=== PATIENT | female | born 1970 | race African-American/Black ===

== ENCOUNTER 2021-06-12 12:22 | Inpatient (IN) | payer BC ==
[2021-06-12] MEDS ORDERED: MENTHOL/PHENOL 1 EACH UD MM PRN (14:05)
[2021-06-12] MEDS ORDERED: ACETAMINOPHEN 325 MG TABLET (FP) PO PRN (14:05)
[2021-06-12] MEDS ORDERED: IBUPROFEN 400 MG TABLET (FP) PO PRN (14:05)
[2021-06-12] MEDS ORDERED: METHOCARBAMOL 500 MG TABLET PO PRN (14:05)
[2021-06-12] MEDS ORDERED: MAGNESIUM CITRATE 300 ML BOTTLE PO PRN (14:05)
[2021-06-12] MEDS ORDERED: diazePAM 5 MG TABLET PO PRN (14:05)
[2021-06-12] MEDS ORDERED: ONDANSETRON *ODT* 4 MG TABLET SL PRN (14:05)
[2021-06-12] MEDS ORDERED: MAGNESIUM HYDROX 2400MG/30ML ORAL SUSPENSION 30 ML CUP PO PRN (14:05)
[2021-06-12] MEDS ORDERED: BISMUTH SUBSALICYLATE 524 MG/30 ML PO PRN (14:05)
[2021-06-12] MEDS ORDERED: NICOTINE 10 MG CARTRIDGE (INHALER) IH PRN (14:05)
[2021-06-12 14:06] VITALS: BMI 28.9
[2021-06-12] MEDS ORDERED: diazePAM 5 MG TABLET ONE (16:32)
[2021-06-12] MEDS ORDERED: ONDANSETRON *ODT* 4 MG TABLET ONE (16:33)
[2021-06-12] MEDS ORDERED: hydrOXYzine PAMOATE 25 MG CAPSULE (FP) PO ONE (16:34)
[2021-06-12] MEDS: diazePAM 5 MG TABLET PO SCH ×2 (16:36→22:27)
[2021-06-12] MEDS: PRENATAL VITAMINS W/ FOLIC ACID TABLET (FP) PO SCH (16:36)
[2021-06-12 17:17] LABS: HEMATOCRIT 42.8 % (32.4-45.2); HEMOGLOBIN 14.2 GM/dL (10.7-15.3); MCH 28.1 pg (25.7-33.7); MCHC 33.3 g/dl (32.0-36.0); MEAN CELL VOLUME 84.5 fl (80-96); MEAN PLT VOLUME 8.1 fl (7.5-11.1); PLATELET COUNT 345 10^3/uL (134-434); RBC 5.06 M/mm3 (3.60-5.2); RDW 15.8 % (11.6-15.6); WHITE BLOOD COUNT 5.9 K/mm3 (4.0-10.0)
[2021-06-12 17:32] LABS: ALBUMIN 4.4 g/dl (3.4-5.0); BLOOD UREA NITROGEN 12.8 mg/dL (7-18)
[2021-06-12 17:35] LABS: CALCIUM 9.6 mg/dL (8.5-10.1)
[2021-06-12 17:37] LABS: CREATININE 0.8 mg/dL (0.55-1.3)
[2021-06-12 17:38] LABS: BILIRUBIN,TOTAL 0.9 mg/dL (0.2-1); TOT PROT 8.4 g/dl (6.4-8.2)
[2021-06-12] MEDS: hydrOXYzine PAMOATE 25 MG CAPSULE (FP) PO SCH ×2 (20:02→22:27)
[2021-06-12] MEDS: NICOTINE 14 MG/24 HOURS TOPICAL PATCH TD SCH (20:07)
[2021-06-12] MEDS: MELATONIN 5 MG TABLETS PO SCH (22:26)
[2021-06-12] MEDS: QUEtiapine FUMARATE 100 MG TABLET (FP) PO SCH (22:26)
[2021-06-12] MEDS: GABAPENTIN 300 MG CAPSULE PO SCH (22:27)
[2021-06-12] MEDS: THIAMINE HCL 100 MG TABLET (FP) PO SCH (22:27)
[2021-06-13] MEDS: hydrOXYzine PAMOATE 25 MG CAPSULE (FP) PO SCH ×2 (05:24→10:18)
[2021-06-13] MEDS: diazePAM 5 MG TABLET PO SCH ×4 (05:24→22:23)
[2021-06-13] MEDS: ACETAMINOPHEN 325 MG TABLET (FP) PO PRN (05:26)
[2021-06-13] MEDS ORDERED: PNEUMOC 13-VAL CONJ-DIP CRM/PF 0.5 ML DISP.SYRIN IM ONE (10:00)
[2021-06-13] MEDS: NICOTINE 14 MG/24 HOURS TOPICAL PATCH TD SCH (10:18)
[2021-06-13] MEDS: PRENATAL VITAMINS W/ FOLIC ACID TABLET (FP) PO SCH (10:18)
[2021-06-13] MEDS: GABAPENTIN 300 MG CAPSULE PO SCH ×2 (10:19→22:23)
[2021-06-13 10:25] LABS: HIV INTERPRETATION NEGATIVE (NEGATIVE)
[2021-06-13] MEDS ORDERED: PNEUMOCOCCAL 23 VACCINE 0.5 ML VIAL IM ONE (12:00)
[2021-06-13] MEDS ORDERED: hydrOXYzine PAMOATE 25 MG CAPSULE (FP) PO PRN (13:12)
[2021-06-13] MEDS: THIAMINE HCL 100 MG TABLET (FP) PO SCH (22:23)
[2021-06-13] MEDS: QUEtiapine FUMARATE 100 MG TABLET (FP) PO SCH (22:23)
[2021-06-13] MEDS: MELATONIN 5 MG TABLETS PO SCH (22:25)
[2021-06-14] MEDS: diazePAM 5 MG TABLET PO SCH ×3 (06:16→22:08)
[2021-06-14] MEDS: NICOTINE POLACRILEX 4 MG GUM BUC PRN ×2 (06:17→10:30)
[2021-06-14] MEDS: PRENATAL VITAMINS W/ FOLIC ACID TABLET (FP) PO SCH (10:29)
[2021-06-14] MEDS: GABAPENTIN 300 MG CAPSULE PO SCH ×2 (10:29→22:07)
[2021-06-14] MEDS: NICOTINE 14 MG/24 HOURS TOPICAL PATCH TD SCH (11:12)
[2021-06-14] MEDS ORDERED: COLLOIDAL OATMEAL 1 BAR EACH TP PRN (13:08)
[2021-06-14] MEDS: diphenhydrAMINE HCL 25 MG CAPSULE (FP) PO PRN ×2 (13:57→20:26)
[2021-06-14] MEDS: HYDROCORTISONE 1% TOPICAL OINT 30 GM TUBE TP PRN (18:29)
[2021-06-14] MEDS: THIAMINE HCL 100 MG TABLET (FP) PO SCH (22:07)
[2021-06-14] MEDS: QUEtiapine FUMARATE 100 MG TABLET (FP) PO SCH (22:07)
[2021-06-14] MEDS: MELATONIN 5 MG TABLETS PO SCH (22:07)
[2021-06-15] MEDS: diazePAM 5 MG TABLET PO SCH ×2 (06:49→17:48)
[2021-06-15] MEDS: PRENATAL VITAMINS W/ FOLIC ACID TABLET (FP) PO SCH (10:36)
[2021-06-15] MEDS: GABAPENTIN 300 MG CAPSULE PO SCH ×2 (10:36→22:18)
[2021-06-15] MEDS: diphenhydrAMINE HCL 25 MG CAPSULE (FP) PO PRN ×2 (10:38→17:49)
[2021-06-15] MEDS: HYDROCORTISONE 1% TOPICAL OINT 30 GM TUBE TP PRN (10:38)
[2021-06-15] MEDS: NICOTINE 14 MG/24 HOURS TOPICAL PATCH TD SCH (11:38)
[2021-06-15] MEDS: MAG HYDROX/AL HYDROX/SIMETH 30 ML UNIT-DOSE CUP PO PRN ×2 (14:20→22:20)
[2021-06-15] MEDS: MELATONIN 5 MG TABLETS PO SCH (22:18)
[2021-06-15] MEDS: THIAMINE HCL 100 MG TABLET (FP) PO SCH (22:18)
[2021-06-15] MEDS: QUEtiapine FUMARATE 100 MG TABLET (FP) PO SCH (22:18)
[2021-06-15] MEDS: ACETAMINOPHEN 325 MG TABLET (FP) PO PRN (22:19)
[2021-06-16] MEDS: diphenhydrAMINE HCL 25 MG CAPSULE (FP) PO PRN (05:54)
[2021-06-16] MEDS ORDERED: diazePAM 5 MG TABLET PO ONE (06:00)
[2021-06-16] MEDS: GABAPENTIN 300 MG CAPSULE PO SCH (09:51)
[2021-06-16] MEDS: PRENATAL VITAMINS W/ FOLIC ACID TABLET (FP) PO SCH (09:52)
[2021-06-16] MEDS: NICOTINE 14 MG/24 HOURS TOPICAL PATCH TD SCH (09:52)
[2021-06-16 10:55] VITALS: BP 142/91; PULSE 89; TEMP 96.8
== END 2021-06-16 10:05 | disposition home or self-care (01) | DRG 774 ==
LOC: YASAS 12:22 → Y3N 19:08
PROVIDERS: ADMIT Allergy & Immunology; ATTEND Allergy & Immunology
PROC: HZ2ZZZZ Detoxification Services for Substance Abuse Treatment (ICD-10-PCS; principal; 2021-06-12)
DX: F10.230 Alcohol dependence with withdrawal, uncomplicated (principal); F14.10 Cocaine abuse, uncomplicated; F12.10 Cannabis abuse, uncomplicated; F17.210 Nicotine dependence, cigarettes, uncomplicated; F10.282 Alcohol dependence with alcohol-induced sleep disorder; F31.9 Bipolar disorder, unspecified; I10 Essential (primary) hypertension; E78.5 Hyperlipidemia, unspecified; L30.9 Dermatitis, unspecified; E66.9 Obesity, unspecified; Z68.29 Body mass index [BMI] 29.0-29.9, adult; Z62.810 Personal history of physical and sexual abuse in childhood; Z86.19 Personal history of other infectious and parasitic diseases; Z91.410 Personal history of adult physical and sexual abuse; Z88.8 Allergy status to other drugs, medicaments and biological substances; Z56.0 Unemployment, unspecified
CPT/HCPCS: 36415; 80053; 81025; 85027; 86593; 86780; 87389; 90732; 93005; 93010; C9803; G0009; Q0162; U0003; U0005

== ENCOUNTER 2022-12-09 11:36 | Inpatient (IN) | payer BC ==
[2022-12-09 12:25] VITALS: BMI 25.6
[2022-12-09] MEDS ORDERED: LOPERAMIDE HCL 2 MG CAPSULE PO PRN (14:03)
[2022-12-09] MEDS ORDERED: MAG HYDROX/AL HYDROX/SIMETH 30 ML UNIT-DOSE CUP PO PRN (14:03)
[2022-12-09] MEDS ORDERED: IBUPROFEN 400 MG TABLET (FP) PO PRN (14:03)
[2022-12-09] MEDS ORDERED: DICYCLOMINE HCL 10 MG CAPSULE PO PRN (14:03)
[2022-12-09] MEDS ORDERED: NALOXONE HCL 0.4 MG/ML VIAL IM PRN (14:03)
[2022-12-09] MEDS ORDERED: BISMUTH SUBSALICYLATE 262 MG/15 ML BTL PO PRN (14:03)
[2022-12-09] MEDS ORDERED: BENZONATATE 200 MG CAPSULE PO PRN (14:03)
[2022-12-09] MEDS ORDERED: guaiFENesin 600 MG TABLET.ER (FP) PO PRN (14:03)
[2022-12-09] MEDS ORDERED: NALOXONE HCL (KLOXXADO) 8 MG SPRAY NS PRN (14:03)
[2022-12-09] MEDS ORDERED: BENZOCAINE/MENTHOL (CHLORASEPTIC ) LOZENGE MM PRN (14:03)
[2022-12-09] MEDS ORDERED: POLYETHYLENE GLYCOL (HEALTHYLAX) 3350 17 GM PACKET PO PRN (14:03)
[2022-12-09] MEDS ORDERED: NICOTINE 10 MG CARTRIDGE (INHALER) IH PRN (14:03)
[2022-12-09] MEDS ORDERED: chlordiazePOXIDE HCL 25 MG CAPSULE ONE (15:24)
[2022-12-09] MEDS: chlordiazePOXIDE HCL 25 MG CAPSULE PO PRN (15:27)
[2022-12-09] MEDS: PRENATAL VITAMINS W/ FOLIC ACID TABLET (FP) PO SCH (15:45)
[2022-12-09] MEDS: chlordiazePOXIDE HCL 25 MG CAPSULE PO SCH ×2 (17:24→22:34)
[2022-12-09] MEDS: NICOTINE POLACRILEX 4 MG GUM BUC PRN (17:58)
[2022-12-09] MEDS ORDERED: MELATONIN 5 MG TABLETS PO SCH (22:00)
[2022-12-09] MEDS: QUEtiapine FUMARATE 100 MG TABLET (FP) PO SCH (22:34)
[2022-12-09] MEDS: THIAMINE HCL 100 MG TABLET (FP) PO SCH (22:34)
[2022-12-09] MEDS: GABAPENTIN 300 MG CAPSULE PO SCH (22:34)
[2022-12-09] MEDS: IBUPROFEN 600 MG TABLET (FP) PO PRN (22:35)
[2022-12-10] MEDS: ACETAMINOPHEN 325 MG TABLET (FP) PO PRN (05:27)
[2022-12-10] MEDS: chlordiazePOXIDE HCL 25 MG CAPSULE PO SCH ×4 (05:45→22:07)
[2022-12-10] MEDS: NICOTINE POLACRILEX 4 MG GUM BUC PRN ×4 (06:56→22:10)
[2022-12-10] MEDS: GABAPENTIN 300 MG CAPSULE PO SCH ×2 (10:24→22:07)
[2022-12-10] MEDS: PRENATAL VITAMINS W/ FOLIC ACID TABLET (FP) PO SCH (10:24)
[2022-12-10] MEDS: ONDANSETRON *ODT* 4 MG TABLET SL PRN (10:26)
[2022-12-10] MEDS: IBUPROFEN 600 MG TABLET (FP) PO PRN ×2 (10:26→17:23)
[2022-12-10] MEDS: hydrOXYzine PAMOATE 25 MG CAPSULE (FP) PO PRN ×3 (10:28→22:08)
[2022-12-10] MEDS: MAGNESIUM HYDROX 2400MG/30ML ORAL SUSPENSION 30 ML CUP PO PRN (11:13)
[2022-12-10 13:16] LABS: CALCIUM 9.1 mg/dL (8.5-10.1); HEMATOCRIT 43.8 % (32.4-45.2); HEMOGLOBIN 14.4 GM/dL (10.7-15.3); MCH 29.2 pg (25.7-33.7); MCHC 32.9 g/dl (32.0-36.0); MEAN CELL VOLUME 88.6 fl (80-96); MEAN PLT VOLUME 8.4 fl (7.5-11.1); PLATELET COUNT 379 10^3/uL (134-434); RBC 4.95 M/mm3 (3.60-5.2); RDW 15.4 % (11.6-15.6); WHITE BLOOD COUNT 4.8 K/mm3 (4.0-10.0)
[2022-12-10 13:17] LABS: ALBUMIN 3.8 g/dl (3.4-5.0); BLOOD UREA NITROGEN 19.2 mg/dL (7-18)
[2022-12-10 13:20] LABS: CREATININE 0.6 mg/dL (0.55-1.3)
[2022-12-10 13:21] LABS: BILIRUBIN,TOTAL 0.4 mg/dL (0.2-1); TOT PROT 7.3 g/dl (6.4-8.2)
[2022-12-10] MEDS: METHOCARBAMOL 500 MG TABLET PO PRN (13:34)
[2022-12-10 14:08] LABS: HIV INTERPRETATION NEGATIVE (NEGATIVE)
[2022-12-10] MEDS: THIAMINE HCL 100 MG TABLET (FP) PO SCH (22:06)
[2022-12-10] MEDS: QUEtiapine FUMARATE 100 MG TABLET (FP) PO SCH (22:07)
[2022-12-11] MEDS: IBUPROFEN 600 MG TABLET (FP) PO PRN ×2 (00:48→10:09)
[2022-12-11] MEDS: hydrOXYzine PAMOATE 25 MG CAPSULE (FP) PO PRN ×3 (06:11→17:31)
[2022-12-11] MEDS: NICOTINE POLACRILEX 4 MG GUM BUC PRN ×3 (06:12→15:53)
[2022-12-11] MEDS: chlordiazePOXIDE HCL 25 MG CAPSULE PO SCH ×4 (06:13→22:13)
[2022-12-11] MEDS: NYSTATIN 500,000 UNITS/5 ML SUSPENSION PO SCH ×4 (06:13→23:13)
[2022-12-11] MEDS: PRENATAL VITAMINS W/ FOLIC ACID TABLET (FP) PO SCH (10:06)
[2022-12-11] MEDS: GABAPENTIN 300 MG CAPSULE PO SCH ×2 (10:06→22:14)
[2022-12-11] MEDS ORDERED: PNEUMOC 20-VAL CONJ-DIP CRM/PF 0.5 ML SYRINGE IM ONE (12:00)
[2022-12-11] MEDS ORDERED: COLLOIDAL OATMEAL 1 BAR EACH TP PRN (13:58)
[2022-12-11] MEDS: LORATADINE 10 MG TABLET PO SCH (14:15)
[2022-12-11] MEDS: MAGNESIUM HYDROX 2400MG/30ML ORAL SUSPENSION 30 ML CUP PO PRN (16:44)
[2022-12-11] MEDS: chlordiazePOXIDE HCL 25 MG CAPSULE PO PRN ×2 (17:30→22:15)
[2022-12-11] MEDS: THIAMINE HCL 100 MG TABLET (FP) PO SCH (22:14)
[2022-12-11] MEDS: QUEtiapine FUMARATE 100 MG TABLET (FP) PO SCH (22:14)
[2022-12-12] MEDS ORDERED: chlordiazePOXIDE HCL 10 MG CAPSULE PO PRN
[2022-12-12] MEDS: NYSTATIN 500,000 UNITS/5 ML SUSPENSION PO SCH ×3 (05:09→17:29)
[2022-12-12] MEDS: chlordiazePOXIDE HCL 10 MG CAPSULE PO SCH ×4 (05:10→22:58)
[2022-12-12] MEDS: NICOTINE POLACRILEX 4 MG GUM BUC PRN ×4 (07:23→17:30)
[2022-12-12] MEDS: PRENATAL VITAMINS W/ FOLIC ACID TABLET (FP) PO SCH (10:23)
[2022-12-12] MEDS: GABAPENTIN 300 MG CAPSULE PO SCH ×2 (10:24→22:58)
[2022-12-12] MEDS: hydrOXYzine PAMOATE 25 MG CAPSULE (FP) PO PRN (10:24)
[2022-12-12] MEDS: METHOCARBAMOL 500 MG TABLET PO PRN (10:26)
[2022-12-12] MEDS: LORATADINE 10 MG TABLET PO SCH (10:57)
[2022-12-12] MEDS: ALBUTEROL SO4 2.5/IPRATROPIUM 0.5 INH SOL 3 ML VIAL.NEB. NEB SCH ×3 (11:09→20:31)
[2022-12-12] MEDS: ONDANSETRON *ODT* 4 MG TABLET SL PRN (15:08)
[2022-12-12] MEDS: THIAMINE HCL 100 MG TABLET (FP) PO SCH (22:58)
[2022-12-12] MEDS: QUEtiapine FUMARATE 100 MG TABLET (FP) PO SCH (22:58)
[2022-12-12] MEDS: ACETAMINOPHEN 325 MG TABLET (FP) PO PRN (22:58)
[2022-12-13] MEDS: NYSTATIN 500,000 UNITS/5 ML SUSPENSION PO SCH ×5 (00:33→23:23)
[2022-12-13] MEDS: ONDANSETRON *ODT* 4 MG TABLET SL PRN ×2 (03:10→11:25)
[2022-12-13] MEDS: METHOCARBAMOL 500 MG TABLET PO PRN (04:36)
[2022-12-13] MEDS: chlordiazePOXIDE HCL 10 MG CAPSULE PO SCH ×2 (05:55→17:38)
[2022-12-13] MEDS: ALBUTEROL SO4 2.5/IPRATROPIUM 0.5 INH SOL 3 ML VIAL.NEB. NEB SCH (08:10)
[2022-12-13] MEDS: NICOTINE POLACRILEX 4 MG GUM BUC PRN ×2 (08:54→14:44)
[2022-12-13] MEDS: PRENATAL VITAMINS W/ FOLIC ACID TABLET (FP) PO SCH (10:14)
[2022-12-13] MEDS: hydrOXYzine PAMOATE 25 MG CAPSULE (FP) PO PRN (10:14)
[2022-12-13] MEDS: GABAPENTIN 300 MG CAPSULE PO SCH ×2 (10:14→22:21)
[2022-12-13] MEDS: LORATADINE 10 MG TABLET PO SCH (10:14)
[2022-12-13] MEDS: predniSONE 20 MG TABLET (UD) PO SCH (10:54)
[2022-12-13] MEDS ORDERED: GABAPENTIN 300 MG CAPSULE PO ONE (14:00)
[2022-12-13] MEDS: QUEtiapine FUMARATE 100 MG TABLET (FP) PO SCH (22:20)
[2022-12-13] MEDS: THIAMINE HCL 100 MG TABLET (FP) PO SCH (22:20)
[2022-12-14] MEDS ORDERED: chlordiazePOXIDE HCL 10 MG CAPSULE PO ONE (05:00)
[2022-12-14] MEDS: hydrOXYzine PAMOATE 25 MG CAPSULE (FP) PO PRN (05:47)
[2022-12-14] MEDS: NICOTINE POLACRILEX 4 MG GUM BUC PRN ×2 (05:48→09:41)
[2022-12-14] MEDS: GABAPENTIN 300 MG CAPSULE PO SCH (09:24)
[2022-12-14] MEDS: predniSONE 20 MG TABLET (UD) PO SCH (09:24)
[2022-12-14] MEDS: LORATADINE 10 MG TABLET PO SCH (09:24)
[2022-12-14] MEDS: PRENATAL VITAMINS W/ FOLIC ACID TABLET (FP) PO SCH (09:25)
[2022-12-14 09:43] VITALS: BP 119/82; PULSE 90; RESP 18; TEMP 96.9
[2022-12-14] MEDS ORDERED: QUEtiapine FUMARATE 200 MG TABLET PO SCH (22:00)
== END 2022-12-14 10:11 | disposition home or self-care (01) | DRG 774 ==
LOC: YASAS 11:36 → Y6N 14:13
PROVIDERS: ADMIT Allergy & Immunology; ATTEND Surgery
PROC: HZ2ZZZZ Detoxification Services for Substance Abuse Treatment (ICD-10-PCS; principal; 2022-12-09)
DX: F10.230 Alcohol dependence with withdrawal, uncomplicated (principal); F14.20 Cocaine dependence, uncomplicated; F12.20 Cannabis dependence, uncomplicated; F19.282 Other psychoactive substance dependence with psychoactive substance-induced sleep disorder; F31.9 Bipolar disorder, unspecified; F25.0 Schizoaffective disorder, bipolar type; E78.5 Hyperlipidemia, unspecified; I10 Essential (primary) hypertension; J44.1 Chronic obstructive pulmonary disease with (acute) exacerbation; B37.0 Candidal stomatitis; J30.2 Other seasonal allergic rhinitis; Z62.810 Personal history of physical and sexual abuse in childhood; Z87.891 Personal history of nicotine dependence; Z86.16 Personal history of COVID-19; Z59.01 Sheltered homelessness
CPT/HCPCS: 36415; 71045-TC-FY; 80053; 85027; 86593; 86780; 87389; 90677; 94640; C9803-CS; Q0162; U0003; U0005

== ENCOUNTER 2023-06-01 15:36 | Inpatient (IN) | payer BC ==
[2023-06-01 16:43] VITALS: BMI 25.6
[2023-06-01] MEDS ORDERED: LORazepam 1 MG TABLET PO PRN (17:27)
[2023-06-01] MEDS ORDERED: BENZOCAINE/MENTHOL (CHLORASEPTIC ) LOZENGE MM PRN (17:31)
[2023-06-01] MEDS ORDERED: ONDANSETRON *ODT* 4 MG TABLET SL PRN (17:31)
[2023-06-01] MEDS ORDERED: MAGNESIUM HYDROX 2400MG/30ML ORAL SUSPENSION 30 ML CUP PO PRN (17:31)
[2023-06-01] MEDS ORDERED: NALOXONE HCL (KLOXXADO) 8 MG SPRAY NS PRN (17:31)
[2023-06-01] MEDS ORDERED: DICYCLOMINE HCL 10 MG CAPSULE PO PRN (17:31)
[2023-06-01] MEDS ORDERED: LOPERAMIDE HCL 2 MG CAPSULE PO PRN (17:31)
[2023-06-01] MEDS ORDERED: POLYETHYLENE GLYCOL (HEALTHYLAX) 3350 17 GM PACKET PO PRN (17:31)
[2023-06-01] MEDS ORDERED: BISMUTH SUBSALICYLATE 524 MG/30 ML PO PRN (17:31)
[2023-06-01] MEDS ORDERED: guaiFENesin 600 MG TABLET.ER (FP) PO PRN (17:31)
[2023-06-01] MEDS ORDERED: BENZONATATE 200 MG CAPSULE PO PRN (17:31)
[2023-06-01] MEDS ORDERED: IBUPROFEN 400 MG TABLET (FP) PO PRN (17:31)
[2023-06-01] MEDS ORDERED: NALOXONE HCL 0.4 MG/ML VIAL IM PRN (17:31)
[2023-06-01] MEDS ORDERED: ALBUTEROL SO4 HFA INHALER IH PRN (17:33)
[2023-06-01] MEDS ORDERED: diazePAM 5 MG TABLET ONE (18:04)
[2023-06-01] MEDS: diazePAM 5 MG TABLET PO PRN (18:06)
[2023-06-01] MEDS: hydrOXYzine PAMOATE 25 MG CAPSULE (FP) PO PRN (18:34)
[2023-06-01] MEDS: MELATONIN 5 MG TABLETS PO SCH (22:19)
[2023-06-01] MEDS: diazePAM 5 MG TABLET PO SCH (22:19)
[2023-06-01] MEDS: THIAMINE HCL 100 MG TABLET (FP) PO SCH (22:19)
[2023-06-01] MEDS ORDERED: LORazepam 2 MG TABLET PO SCH (23:00)
[2023-06-02] MEDS: diazePAM 5 MG TABLET PO SCH ×4 (05:22→22:04)
[2023-06-02] MEDS: ACETAMINOPHEN 325 MG TABLET (FP) PO PRN ×2 (05:22→14:10)
[2023-06-02] MEDS: NICOTINE POLACRILEX 2 MG GUM BC PRN ×3 (08:01→17:58)
[2023-06-02] MEDS: NICOTINE 14 MG/24 HOURS TOPICAL PATCH TD SCH (10:18)
[2023-06-02] MEDS: GABAPENTIN 300 MG CAPSULE PO SCH ×2 (10:18→22:02)
[2023-06-02] MEDS: PRENATAL VITAMINS W/ FOLIC ACID TABLET (FP) PO SCH (10:18)
[2023-06-02] MEDS: hydrOXYzine PAMOATE 25 MG CAPSULE (FP) PO PRN (10:19)
[2023-06-02] MEDS: METHOCARBAMOL 500 MG TABLET PO PRN (10:19)
[2023-06-02 10:35] LABS: CALCIUM 9.5 mg/dL (8.5-10.1); HEMATOCRIT 43.6 % (32.4-45.2); HEMOGLOBIN 14.2 GM/dL (10.7-15.3); MCH 28.6 pg (25.7-33.7); MCHC 32.6 g/dl (32.0-36.0); MEAN CELL VOLUME 87.7 fl (80-96); MEAN PLT VOLUME 8.7 fl (7.5-11.1); PLATELET COUNT 319 10^3/uL (134-434); RBC 4.97 M/mm3 (3.60-5.2); RDW 14.7 % (11.6-15.6); WHITE BLOOD COUNT 4.1 K/mm3 (4.0-10.0)
[2023-06-02 10:36] LABS: ALBUMIN 3.7 g/dl (3.4-5.0); BLOOD UREA NITROGEN 12.6 mg/dL (7-18)
[2023-06-02 10:39] LABS: CREATININE 0.8 mg/dL (0.55-1.3)
[2023-06-02 10:40] LABS: BILIRUBIN,TOTAL 0.7 mg/dL (0.2-1); TOT PROT 7.4 g/dl (6.4-8.2)
[2023-06-02] MEDS: MAG HYDROX/AL HYDROX/SIMETH 30 ML UNIT-DOSE CUP PO PRN (10:40)
[2023-06-02] MEDS: IBUPROFEN 600 MG TABLET (FP) PO PRN (19:14)
[2023-06-02] MEDS: MELATONIN 5 MG TABLETS PO SCH (22:02)
[2023-06-02] MEDS: QUEtiapine FUMARATE 100 MG TABLET (FP) PO SCH (22:04)
[2023-06-02] MEDS: THIAMINE HCL 100 MG TABLET (FP) PO SCH (22:04)
[2023-06-02] MEDS: LORATADINE 10 MG TABLET PO SCH (22:04)
[2023-06-03] MEDS: ACETAMINOPHEN 325 MG TABLET (FP) PO PRN (03:36)
[2023-06-03] MEDS ORDERED: LORazepam 1 MG TABLET PO SCH (05:00)
[2023-06-03] MEDS: diazePAM 5 MG TABLET PO SCH ×3 (05:29→22:06)
[2023-06-03] MEDS: METHOCARBAMOL 500 MG TABLET PO PRN ×2 (05:30→17:11)
[2023-06-03] MEDS: hydrOXYzine PAMOATE 25 MG CAPSULE (FP) PO PRN ×2 (05:30→17:11)
[2023-06-03] MEDS: NICOTINE POLACRILEX 2 MG GUM BC PRN ×4 (07:08→22:37)
[2023-06-03] MEDS: NICOTINE 14 MG/24 HOURS TOPICAL PATCH TD SCH (10:20)
[2023-06-03] MEDS: GABAPENTIN 300 MG CAPSULE PO SCH ×2 (10:20→22:06)
[2023-06-03] MEDS: PRENATAL VITAMINS W/ FOLIC ACID TABLET (FP) PO SCH (10:20)
[2023-06-03] MEDS: MAG HYDROX/AL HYDROX/SIMETH 30 ML UNIT-DOSE CUP PO PRN (12:14)
[2023-06-03] MEDS ORDERED: FAMOTIDINE 20 MG TABLET PO ONE (13:15)
[2023-06-03] MEDS: IBUPROFEN 600 MG TABLET (FP) PO PRN (21:03)
[2023-06-03] MEDS: QUEtiapine FUMARATE 100 MG TABLET (FP) PO SCH (22:06)
[2023-06-03] MEDS: LORATADINE 10 MG TABLET PO SCH (22:06)
[2023-06-03] MEDS: FAMOTIDINE 20 MG TABLET PO SCH (22:06)
[2023-06-03] MEDS: THIAMINE HCL 100 MG TABLET (FP) PO SCH (22:06)
[2023-06-03] MEDS: MELATONIN 5 MG TABLETS PO SCH (22:07)
[2023-06-04] MEDS ORDERED: LORazepam 0.5 MG TABLET PO PRN
[2023-06-04] MEDS ORDERED: LORazepam 0.5 MG TABLET PO SCH (05:00)
[2023-06-04] MEDS: ACETAMINOPHEN 325 MG TABLET (FP) PO PRN (05:03)
[2023-06-04] MEDS: diazePAM 5 MG TABLET PO SCH ×2 (05:19→17:40)
[2023-06-04] MEDS: GABAPENTIN 300 MG CAPSULE PO SCH ×2 (10:25→23:00)
[2023-06-04] MEDS: FAMOTIDINE 20 MG TABLET PO SCH ×2 (10:25→22:59)
[2023-06-04] MEDS: PRENATAL VITAMINS W/ FOLIC ACID TABLET (FP) PO SCH (10:25)
[2023-06-04] MEDS: NICOTINE 14 MG/24 HOURS TOPICAL PATCH TD SCH (10:25)
[2023-06-04] MEDS: hydrOXYzine PAMOATE 25 MG CAPSULE (FP) PO PRN ×2 (10:26→17:42)
[2023-06-04] MEDS: METHOCARBAMOL 500 MG TABLET PO PRN (10:26)
[2023-06-04] MEDS: IBUPROFEN 600 MG TABLET (FP) PO PRN (10:26)
[2023-06-04] MEDS: NICOTINE POLACRILEX 2 MG GUM BC PRN ×2 (11:26→18:40)
[2023-06-04] MEDS: BENZOCAINE 20 % GEL TUBE MM SCH ×2 (14:52→23:09)
[2023-06-04] MEDS: diazePAM 5 MG TABLET PO PRN (15:01)
[2023-06-04] MEDS ORDERED: METOPROLOL TARTRATE 25 MG TABLET (FP) PO ONE ×2 (21:00→23:15)
[2023-06-04] MEDS: QUEtiapine FUMARATE 100 MG TABLET (FP) PO SCH (22:59)
[2023-06-04] MEDS: THIAMINE HCL 100 MG TABLET (FP) PO SCH (22:59)
[2023-06-04] MEDS: LORATADINE 10 MG TABLET PO SCH (22:59)
[2023-06-04] MEDS: MELATONIN 5 MG TABLETS PO SCH (23:10)
[2023-06-05] MEDS ORDERED: LORazepam 0.5 MG TABLET PO ONE (05:00)
[2023-06-05] MEDS ORDERED: diazePAM 5 MG TABLET PO ONE (06:00)
[2023-06-05] MEDS: hydrOXYzine PAMOATE 25 MG CAPSULE (FP) PO PRN ×3 (07:00→18:02)
[2023-06-05] MEDS: PRENATAL VITAMINS W/ FOLIC ACID TABLET (FP) PO SCH (09:45)
[2023-06-05] MEDS: BENZOCAINE 20 % GEL TUBE MM SCH ×2 (09:45→22:45)
[2023-06-05] MEDS: GABAPENTIN 300 MG CAPSULE PO SCH ×2 (09:45→22:40)
[2023-06-05] MEDS: NICOTINE 14 MG/24 HOURS TOPICAL PATCH TD SCH (09:46)
[2023-06-05] MEDS: METHOCARBAMOL 500 MG TABLET PO PRN (09:46)
[2023-06-05] MEDS: FAMOTIDINE 20 MG TABLET PO SCH ×2 (09:46→22:40)
[2023-06-05] MEDS: NICOTINE POLACRILEX 2 MG GUM BC PRN ×3 (14:02→20:55)
[2023-06-05] MEDS ORDERED: LISINOPRIL 5 MG TABLET PO ONE (18:46)
[2023-06-05] MEDS: MELATONIN 5 MG TABLETS PO SCH (22:40)
[2023-06-05] MEDS: QUEtiapine FUMARATE 100 MG TABLET (FP) PO SCH (22:40)
[2023-06-05] MEDS: LORATADINE 10 MG TABLET PO SCH (22:40)
[2023-06-05] MEDS: THIAMINE HCL 100 MG TABLET (FP) PO SCH (22:40)
[2023-06-06] MEDS: BENZOCAINE 20 % GEL TUBE MM SCH ×2 (09:48→21:14)
[2023-06-06] MEDS: PRENATAL VITAMINS W/ FOLIC ACID TABLET (FP) PO SCH (09:48)
[2023-06-06] MEDS: hydrOXYzine PAMOATE 25 MG CAPSULE (FP) PO PRN ×2 (09:48→17:40)
[2023-06-06] MEDS: METHOCARBAMOL 500 MG TABLET PO PRN ×2 (09:48→17:40)
[2023-06-06] MEDS: GABAPENTIN 300 MG CAPSULE PO SCH ×2 (09:48→21:13)
[2023-06-06] MEDS: FAMOTIDINE 20 MG TABLET PO SCH ×2 (09:48→21:14)
[2023-06-06] MEDS: NICOTINE POLACRILEX 2 MG GUM BC PRN ×3 (09:53→17:40)
[2023-06-06] MEDS: NICOTINE 14 MG/24 HOURS TOPICAL PATCH TD SCH (10:09)
[2023-06-06] MEDS: amLODIPine BESYLATE 5 MG TABLET (FP) PO SCH (18:37)
[2023-06-06] MEDS: LORATADINE 10 MG TABLET PO SCH (21:13)
[2023-06-06] MEDS: THIAMINE HCL 100 MG TABLET (FP) PO SCH (21:14)
[2023-06-06] MEDS: QUEtiapine FUMARATE 100 MG TABLET (FP) PO SCH (21:14)
[2023-06-06] MEDS: MELATONIN 5 MG TABLETS PO SCH (21:14)
[2023-06-06] MEDS: IBUPROFEN 600 MG TABLET (FP) PO PRN (21:15)
[2023-06-07] MEDS: NICOTINE 14 MG/24 HOURS TOPICAL PATCH TD SCH (09:44)
[2023-06-07] MEDS: PRENATAL VITAMINS W/ FOLIC ACID TABLET (FP) PO SCH (09:44)
[2023-06-07] MEDS: FAMOTIDINE 20 MG TABLET PO SCH ×2 (09:45→21:52)
[2023-06-07] MEDS: hydrOXYzine PAMOATE 25 MG CAPSULE (FP) PO PRN ×3 (09:45→17:44)
[2023-06-07] MEDS: amLODIPine BESYLATE 5 MG TABLET (FP) PO SCH (09:45)
[2023-06-07] MEDS: METHOCARBAMOL 500 MG TABLET PO PRN ×2 (09:45→17:01)
[2023-06-07] MEDS: GABAPENTIN 300 MG CAPSULE PO SCH ×2 (09:45→21:52)
[2023-06-07] MEDS: NICOTINE POLACRILEX 2 MG GUM BC PRN ×4 (09:46→21:55)
[2023-06-07] MEDS: BENZOCAINE 20 % GEL TUBE MM SCH ×2 (09:47→21:55)
[2023-06-07] MEDS ORDERED: cloNIDine HCL 0.1 MG TABLET PO ONE (21:46)
[2023-06-07] MEDS: THIAMINE HCL 100 MG TABLET (FP) PO SCH (21:51)
[2023-06-07] MEDS: QUEtiapine FUMARATE 100 MG TABLET (FP) PO SCH (21:52)
[2023-06-07] MEDS: MELATONIN 5 MG TABLETS PO SCH (21:52)
[2023-06-07] MEDS: LORATADINE 10 MG TABLET PO SCH (21:52)
[2023-06-08] MEDS: NICOTINE POLACRILEX 2 MG GUM BC PRN ×3 (07:44→18:15)
[2023-06-08] MEDS: hydrOXYzine PAMOATE 25 MG CAPSULE (FP) PO PRN ×2 (07:49→18:19)
[2023-06-08] MEDS: BENZOCAINE 20 % GEL TUBE MM SCH ×2 (09:36→21:59)
[2023-06-08] MEDS: PRENATAL VITAMINS W/ FOLIC ACID TABLET (FP) PO SCH (09:36)
[2023-06-08] MEDS: amLODIPine BESYLATE 5 MG TABLET (FP) PO SCH (09:36)
[2023-06-08] MEDS: GABAPENTIN 300 MG CAPSULE PO SCH ×2 (09:37→21:58)
[2023-06-08] MEDS: FAMOTIDINE 20 MG TABLET PO SCH ×2 (09:37→21:58)
[2023-06-08] MEDS: NICOTINE 14 MG/24 HOURS TOPICAL PATCH TD SCH (09:38)
[2023-06-08] MEDS: QUEtiapine FUMARATE 100 MG TABLET (FP) PO SCH (21:58)
[2023-06-08] MEDS: LORATADINE 10 MG TABLET PO SCH (21:59)
[2023-06-08] MEDS: THIAMINE HCL 100 MG TABLET (FP) PO SCH (21:59)
[2023-06-08] MEDS: MELATONIN 5 MG TABLETS PO SCH (21:59)
[2023-06-09] MEDS: ACETAMINOPHEN 325 MG TABLET (FP) PO PRN (01:38)
[2023-06-09] MEDS: hydrOXYzine PAMOATE 25 MG CAPSULE (FP) PO PRN (08:01)
[2023-06-09] MEDS: GABAPENTIN 300 MG CAPSULE PO SCH ×2 (10:02→22:43)
[2023-06-09] MEDS: PRENATAL VITAMINS W/ FOLIC ACID TABLET (FP) PO SCH (10:02)
[2023-06-09] MEDS: BENZOCAINE 20 % GEL TUBE MM SCH ×2 (10:02→22:44)
[2023-06-09] MEDS: NICOTINE POLACRILEX 2 MG GUM BC PRN ×3 (10:02→20:28)
[2023-06-09] MEDS: FAMOTIDINE 20 MG TABLET PO SCH ×2 (10:02→22:43)
[2023-06-09] MEDS: amLODIPine BESYLATE 5 MG TABLET (FP) PO SCH (10:02)
[2023-06-09] MEDS: NICOTINE 14 MG/24 HOURS TOPICAL PATCH TD SCH (10:03)
[2023-06-09] MEDS: LORATADINE 10 MG TABLET PO SCH (22:43)
[2023-06-09] MEDS: THIAMINE HCL 100 MG TABLET (FP) PO SCH (22:43)
[2023-06-09] MEDS: MELATONIN 5 MG TABLETS PO SCH (22:43)
[2023-06-09] MEDS: QUEtiapine FUMARATE 100 MG TABLET (FP) PO SCH (22:44)
[2023-06-10] MEDS: NICOTINE POLACRILEX 2 MG GUM BC PRN ×5 (07:07→22:34)
[2023-06-10] MEDS: PRENATAL VITAMINS W/ FOLIC ACID TABLET (FP) PO SCH (09:41)
[2023-06-10] MEDS: hydrOXYzine PAMOATE 25 MG CAPSULE (FP) PO PRN ×2 (09:41→22:32)
[2023-06-10] MEDS: GABAPENTIN 300 MG CAPSULE PO SCH ×2 (09:41→22:32)
[2023-06-10] MEDS: FAMOTIDINE 20 MG TABLET PO SCH ×2 (09:41→22:32)
[2023-06-10] MEDS: amLODIPine BESYLATE 5 MG TABLET (FP) PO SCH (09:41)
[2023-06-10] MEDS: NICOTINE 14 MG/24 HOURS TOPICAL PATCH TD SCH (10:59)
[2023-06-10] MEDS: BENZOCAINE 20 % GEL TUBE MM SCH ×3 (10:59→22:50)
[2023-06-10] MEDS: MELATONIN 5 MG TABLETS PO SCH (22:31)
[2023-06-10] MEDS: QUEtiapine FUMARATE 100 MG TABLET (FP) PO SCH (22:31)
[2023-06-10] MEDS: LORATADINE 10 MG TABLET PO SCH (22:32)
[2023-06-10] MEDS: THIAMINE HCL 100 MG TABLET (FP) PO SCH (22:32)
[2023-06-11] MEDS: IBUPROFEN 600 MG TABLET (FP) PO PRN (06:00)
[2023-06-11] MEDS: NICOTINE POLACRILEX 2 MG GUM BC PRN ×3 (06:51→18:18)
[2023-06-11] MEDS: BENZOCAINE 20 % GEL TUBE MM SCH ×2 (10:26→21:34)
[2023-06-11] MEDS: amLODIPine BESYLATE 5 MG TABLET (FP) PO SCH (10:28)
[2023-06-11] MEDS: GABAPENTIN 300 MG CAPSULE PO SCH ×2 (10:28→21:36)
[2023-06-11] MEDS: FAMOTIDINE 20 MG TABLET PO SCH ×2 (10:28→21:36)
[2023-06-11] MEDS: hydrOXYzine PAMOATE 25 MG CAPSULE (FP) PO PRN (10:28)
[2023-06-11] MEDS: PRENATAL VITAMINS W/ FOLIC ACID TABLET (FP) PO SCH (10:30)
[2023-06-11] MEDS: NICOTINE 14 MG/24 HOURS TOPICAL PATCH TD SCH (10:30)
[2023-06-11] MEDS: MELATONIN 5 MG TABLETS PO SCH (21:35)
[2023-06-11] MEDS: THIAMINE HCL 100 MG TABLET (FP) PO SCH (21:35)
[2023-06-11] MEDS: LORATADINE 10 MG TABLET PO SCH (21:36)
[2023-06-11] MEDS: QUEtiapine FUMARATE 100 MG TABLET (FP) PO SCH (21:36)
[2023-06-12] MEDS: NICOTINE POLACRILEX 2 MG GUM BC PRN (06:47)
[2023-06-12 07:05] VITALS: RESP 18
[2023-06-12 09:21] VITALS: BP 156/97; PULSE 92; TEMP 97.1
[2023-06-12] MEDS ORDERED: cloNIDine HCL 0.1 MG TABLET PO ONE (10:09)
[2023-06-12] MEDS: GABAPENTIN 300 MG CAPSULE PO SCH (10:12)
[2023-06-12] MEDS: FAMOTIDINE 20 MG TABLET PO SCH (10:12)
[2023-06-12] MEDS: PRENATAL VITAMINS W/ FOLIC ACID TABLET (FP) PO SCH (10:12)
[2023-06-12] MEDS: BENZOCAINE 20 % GEL TUBE MM SCH (10:12)
[2023-06-12] MEDS: NICOTINE 14 MG/24 HOURS TOPICAL PATCH TD SCH (10:14)
== END 2023-06-12 10:35 | disposition home or self-care (01) | DRG 774 ==
LOC: YASAS 15:36 → Y6N 17:42
PROVIDERS: ADMIT Allergy & Immunology; ATTEND Surgery
PROC: HZ2ZZZZ Detoxification Services for Substance Abuse Treatment (ICD-10-PCS; principal; 2023-06-01)
DX: F10.230 Alcohol dependence with withdrawal, uncomplicated (principal); F14.20 Cocaine dependence, uncomplicated; F12.20 Cannabis dependence, uncomplicated; F17.210 Nicotine dependence, cigarettes, uncomplicated; F10.282 Alcohol dependence with alcohol-induced sleep disorder; F10.280 Alcohol dependence with alcohol-induced anxiety disorder; F31.9 Bipolar disorder, unspecified; F43.10 Post-traumatic stress disorder, unspecified; U07.1 COVID-19; I10 Essential (primary) hypertension; J45.20 Mild intermittent asthma, uncomplicated; E78.5 Hyperlipidemia, unspecified; R76.8 Other specified abnormal immunological findings in serum; Z86.19 Personal history of other infectious and parasitic diseases; Z59.00 Homelessness unspecified
CPT/HCPCS: 36415; 80053; 81025; 85027; 86593; 86780; 87635

== ENCOUNTER 2024-08-10 15:39 | Inpatient (IN) | payer BC ==
[2024-08-10 15:57] VITALS: BMI 33.3
[2024-08-10] MEDS ORDERED: BENZONATATE 200 MG CAPSULE PO PRN (16:33)
[2024-08-10] MEDS ORDERED: ACETAMINOPHEN 325 MG TABLET (FP) PO PRN (16:33)
[2024-08-10] MEDS ORDERED: POLYETHYLENE GLYCOL (HEALTHYLAX) 3350 17 GM PACKET PO PRN (16:33)
[2024-08-10] MEDS ORDERED: guaiFENesin 600 MG TABLET.ER (FP) PO PRN (16:33)
[2024-08-10] MEDS ORDERED: diazePAM 5 MG TABLET PO PRN (16:33)
[2024-08-10] MEDS ORDERED: MAG HYDROX/AL HYDROX/SIMETH 30 ML UNIT-DOSE CUP PO PRN (16:33)
[2024-08-10] MEDS ORDERED: ONDANSETRON *ODT* 4 MG TABLET SL PRN (16:33)
[2024-08-10] MEDS ORDERED: DICYCLOMINE HCL 10 MG CAPSULE PO PRN (16:33)
[2024-08-10] MEDS ORDERED: IBUPROFEN 600 MG TABLET (FP) PO PRN (16:33)
[2024-08-10] MEDS ORDERED: BENZOCAINE/MENTHOL (CHLORASEPTIC ) LOZENGE MM PRN (16:33)
[2024-08-10] MEDS ORDERED: MAGNESIUM HYDROX 2400MG/30ML ORAL SUSPENSION 30 ML CUP PO PRN (16:33)
[2024-08-10] MEDS ORDERED: IBUPROFEN 400 MG TABLET (FP) PO PRN (16:33)
[2024-08-10] MEDS ORDERED: NALOXONE (NARCAN) HCL 4 MG/0.1 ML SPRAY NS PRN (16:33)
[2024-08-10] MEDS: NICOTINE POLACRILEX 2 MG GUM BUC PRN (20:01)
[2024-08-10] MEDS: THIAMINE 100 MG TABLET PO SCH (22:16)
[2024-08-10] MEDS: MELATONIN 5 MG TABLETS PO SCH (22:16)
[2024-08-10] MEDS: METHOCARBAMOL 500 MG TABLET PO PRN (22:17)
[2024-08-10] MEDS: diazePAM 5 MG TABLET PO SCH (22:17)
[2024-08-10] MEDS: hydrOXYzine PAMOATE 25 MG CAPSULE (FP) PO PRN (22:17)
[2024-08-10] MEDS: BISMUTH SUBSALICYLATE 524 MG/30 ML PO PRN (22:17)
[2024-08-11] MEDS: GABAPENTIN 300 MG CAPSULE PO ONE (08:47)
[2024-08-11] MEDS: QUEtiapine FUMARATE 200 MG TABLET PO ONE (08:54)
[2024-08-11] MEDS: LOPERAMIDE HCL 2 MG CAPSULE PO PRN (09:19)
[2024-08-11] MEDS ORDERED: QUEtiapine FUMARATE 100 MG TABLET (FP) PO SCH (10:00)
[2024-08-11] MEDS ORDERED: GABAPENTIN 300 MG CAPSULE PO SCH (10:00)
[2024-08-11] MEDS: PRENATAL VITAMINS W/ FOLIC ACID TABLET (FP) PO SCH (10:05)
[2024-08-11 12:59] LABS: HEMATOCRIT 35.4 % (32.4-45.2); MCH 26.9 pg (25.7-33.7); MCHC 33.7 g/dl (32.0-36.0); MEAN CELL VOLUME 79.9 fl (80-96); MEAN PLT VOLUME 8.4 fl (7.5-11.1); PLATELET COUNT 308 10^3/uL (134-434); RBC 4.44 M/mm3 (3.60-5.2); RDW 17.3 % (11.6-15.6); WHITE BLOOD COUNT 9.2 K/mm3 (4.0-10.0)
[2024-08-11 13:03] LABS: CHLORIDE 106 mmol/L (98-107); POTASSIUM 4.3 mmol/L (3.5-5.1); SODIUM 136 mmol/L (136-145)
[2024-08-11 13:57] LABS: ANION GAP 7 mmol/L (4-13); CO2 23 mmol/L (21-32)
[2024-08-11 13:59] LABS: CALCIUM 9.7 mg/dL (8.5-10.1)
[2024-08-11 14:00] LABS: ALBUMIN 3.9 g/dl (3.4-5.0); BLOOD UREA NITROGEN 9.8 mg/dL (7-18); GLUCOSE,RANDOM 119 mg/dL (74-106)
[2024-08-11 14:02] LABS: CREATININE 0.8 mg/dL (0.55-1.3); SGOT/AST 63 U/L (15-37); SGPT/ALT 33 U/L (13-61)
[2024-08-11 14:04] LABS: BILIRUBIN,TOTAL 0.3 mg/dL (0.2-1)
[2024-08-11 14:05] LABS: ALK PHOS 113 U/L (45-117)
[2024-08-11] MEDS: diphenhydrAMINE HCL 25 MG CAPSULE (FP) PO ONE (18:43)
[2024-08-11] MEDS ORDERED: HYDROCORTISONE 0.5% TOPICAL CREAM 30 GM TUBE TP PRN (19:01)
[2024-08-11] MEDS: GABAPENTIN 300 MG CAPSULE PO SCH (22:33)
[2024-08-11] MEDS: QUEtiapine FUMARATE 200 MG TABLET PO SCH (22:33)
[2024-08-12] MEDS: diazePAM 5 MG TABLET PO SCH (05:42)
[2024-08-12] MEDS: ALBUTEROL SO4 HFA INHALER IH SCH (06:18)
[2024-08-12 12:41] VITALS: BP 114/78; PULSE 108; RESP 16; TEMP 97.8
[2024-08-12] MEDS: NALOXONE (NYS OPIOID OVERDOSE PROGRAM) 4 MG/0.1 ML SPRAY NS SCH (14:06)
[2024-08-12] MEDS ORDERED: NALOXONE (NYS OPIOID OVERDOSE PROGRAM) 4 MG/0.1 ML SPRAY NS SCH (17:30)
[2024-08-13] MEDS ORDERED: diazePAM 5 MG TABLET PO SCH (06:00)
[2024-08-14] MEDS ORDERED: diazePAM 5 MG TABLET PO ONE (06:00)
== END 2024-08-12 14:26 | disposition home or self-care (01) | DRG 774 ==
LOC: YASAS 15:39 → Y6N 18:46
PROVIDERS: ADMIT Allergy & Immunology; ATTEND Surgery
PROC: HZ2ZZZZ Detoxification Services for Substance Abuse Treatment (ICD-10-PCS; principal; 2024-08-10)
DX: F10.230 Alcohol dependence with withdrawal, uncomplicated (principal); F14.20 Cocaine dependence, uncomplicated; F17.210 Nicotine dependence, cigarettes, uncomplicated; F19.282 Other psychoactive substance dependence with psychoactive substance-induced sleep disorder; F19.280 Other psychoactive substance dependence with psychoactive substance-induced anxiety disorder; F19.24 Other psychoactive substance dependence with psychoactive substance-induced mood disorder; E78.5 Hyperlipidemia, unspecified; I10 Essential (primary) hypertension; J45.20 Mild intermittent asthma, uncomplicated; J30.2 Other seasonal allergic rhinitis; K21.9 Gastro-esophageal reflux disease without esophagitis; M54.50 Low back pain, unspecified; G89.29 Other chronic pain; Z62.810 Personal history of physical and sexual abuse in childhood; Z63.8 Other specified problems related to primary support group; Z88.8 Allergy status to other drugs, medicaments and biological substances
CPT/HCPCS: 36415; 80053; 80305; 80307; 81025; 85027; 86593; 86780

== ENCOUNTER 2024-09-19 13:21 | Inpatient (IN) | payer BC ==
[2024-09-19 15:21] VITALS: BMI 32.5
[2024-09-19] MEDS ORDERED: POLYETHYLENE GLYCOL (HEALTHYLAX) 3350 17 GM PACKET PO PRN (15:40)
[2024-09-19] MEDS ORDERED: ACETAMINOPHEN 325 MG TABLET (FP) PO PRN (15:40)
[2024-09-19] MEDS ORDERED: guaiFENesin 600 MG TABLET.ER (FP) PO PRN (15:40)
[2024-09-19] MEDS ORDERED: BENZONATATE 200 MG CAPSULE PO PRN (15:40)
[2024-09-19] MEDS ORDERED: DICYCLOMINE HCL 10 MG CAPSULE PO PRN (15:40)
[2024-09-19] MEDS ORDERED: NALOXONE (NARCAN) HCL 4 MG/0.1 ML SPRAY NS PRN (15:40)
[2024-09-19] MEDS ORDERED: ONDANSETRON *ODT* 4 MG TABLET SL PRN (15:40)
[2024-09-19] MEDS ORDERED: BENZOCAINE/MENTHOL (CHLORASEPTIC ) LOZENGE MM PRN (15:40)
[2024-09-19] MEDS ORDERED: BISMUTH SUBSALICYLATE 262 MG/15 ML BTL PO PRN (15:40)
[2024-09-19] MEDS ORDERED: MAGNESIUM HYDROX 2400MG/30ML ORAL SUSPENSION 30 ML CUP PO PRN (15:40)
[2024-09-19] MEDS ORDERED: diazePAM 5 MG TABLET ONE (16:38)
[2024-09-19] MEDS ORDERED: ALBUTEROL SO4 HFA INHALER IH ONE (16:39)
[2024-09-19] MEDS: ALBUTEROL SO4 HFA INHALER IH SCH (16:43)
[2024-09-19] MEDS: diazePAM 5 MG TABLET PO SCH (16:46)
[2024-09-19] MEDS: NICOTINE POLACRILEX 2 MG GUM BUC PRN (17:58)
[2024-09-19] MEDS: THIAMINE 100 MG TABLET PO SCH (22:05)
[2024-09-19] MEDS: MELATONIN 5 MG TABLETS PO SCH (22:06)
[2024-09-20] MEDS: LOPERAMIDE HCL 2 MG CAPSULE PO PRN (06:04)
[2024-09-20] MEDS: PRENATAL VITAMINS W/ FOLIC ACID TABLET (FP) PO SCH (10:09)
[2024-09-20] MEDS: QUEtiapine FUMARATE 100 MG TABLET (FP) PO SCH (10:11)
[2024-09-20] MEDS: GABAPENTIN 300 MG CAPSULE PO SCH (10:11)
[2024-09-20 12:30] LABS: HEMATOCRIT 37.8 % (32.4-45.2); HEMOGLOBIN 12.1 GM/dL (10.7-15.3); MCHC 32.1 g/dl (32.0-36.0); MEAN CELL VOLUME 84.3 fl (80-96); MEAN PLT VOLUME 8.5 fl (7.5-11.1); PLATELET COUNT 392 10^3/uL (134-434); RBC 4.49 M/mm3 (3.60-5.2); RDW 17.1 % (11.6-15.6); WHITE BLOOD COUNT 21.5 K/mm3 (4.0-10.0)
[2024-09-20 12:31] LABS: CHLORIDE 102 mmol/L (98-107); POTASSIUM 4.3 mmol/L (3.5-5.1); SODIUM 137 mmol/L (136-145)
[2024-09-20 12:35] LABS: CALCIUM 9.7 mg/dL (8.5-10.1)
[2024-09-20 12:36] LABS: ALBUMIN 3.9 g/dl (3.4-5.0); ANION GAP 10 mmol/L (4-13); BLOOD UREA NITROGEN 15.7 mg/dL (7-18); CO2 25 mmol/L (21-32); GLUCOSE,RANDOM 113 mg/dL (74-106)
[2024-09-20 12:39] LABS: CREATININE 0.8 mg/dL (0.55-1.3); SGOT/AST 24 U/L (15-37); SGPT/ALT 32 U/L (13-61)
[2024-09-20 12:41] LABS: BILIRUBIN,TOTAL 0.3 mg/dL (0.2-1); TOT PROT 7.4 g/dl (6.4-8.2)
[2024-09-20 12:42] LABS: ALK PHOS 90 U/L (45-117)
[2024-09-20] MEDS: hydrOXYzine PAMOATE 25 MG CAPSULE (FP) PO PRN (17:25)
[2024-09-20] MEDS: METHOCARBAMOL 500 MG TABLET PO PRN (21:24)
[2024-09-20] MEDS: diazePAM 5 MG TABLET PO PRN (21:24)
[2024-09-21] MEDS: diazePAM 5 MG TABLET PO SCH (05:22)
[2024-09-21] MEDS: MAG HYDROX/AL HYDROX/SIMETH 30 ML UNIT-DOSE CUP PO PRN (07:02)
[2024-09-21] MEDS: GABAPENTIN 300 MG CAPSULE PO SCH (09:44)
[2024-09-21] MEDS: QUEtiapine FUMARATE 200 MG TABLET PO SCH (09:44)
[2024-09-21 20:52] VITALS: TEMP 97.6
[2024-09-21] MEDS: IBUPROFEN 400 MG TABLET (FP) PO PRN (21:18)
[2024-09-22] MEDS: diazePAM 5 MG TABLET PO SCH (05:55)
[2024-09-22] MEDS: IBUPROFEN 600 MG TABLET (FP) PO PRN (06:03)
[2024-09-22 10:29] VITALS: BP 132/89; PULSE 113; RESP 20
[2024-09-22] MEDS: NALOXONE (NYS OPIOID OVERDOSE PROGRAM) 4 MG/0.1 ML SPRAY NS SCH (11:04)
[2024-09-22 11:13] LABS: HEMATOCRIT 39.3 % (32.4-45.2); HEMOGLOBIN 12.1 GM/dL (10.7-15.3); MCH 26.5 pg (25.7-33.7); MCHC 30.9 g/dl (32.0-36.0); MEAN CELL VOLUME 85.9 fl (80-96); MEAN PLT VOLUME 8.8 fl (7.5-11.1); PLATELET COUNT 351 10^3/uL (134-434); RBC 4.57 M/mm3 (3.60-5.2); RDW 17.6 % (11.6-15.6); WHITE BLOOD COUNT 10.8 K/mm3 (4.0-10.0)
[2024-09-23] MEDS ORDERED: diazePAM 5 MG TABLET PO ONE (06:00)
== END 2024-09-22 10:17 | disposition home or self-care (01) | DRG 774 ==
LOC: YASAS 13:21 → Y6N 16:48
PROVIDERS: ADMIT Allergy & Immunology; ATTEND Surgery
PROC: HZ2ZZZZ Detoxification Services for Substance Abuse Treatment (ICD-10-PCS; principal; 2024-09-19)
DX: F10.230 Alcohol dependence with withdrawal, uncomplicated (principal); F14.10 Cocaine abuse, uncomplicated; F12.20 Cannabis dependence, uncomplicated; F31.9 Bipolar disorder, unspecified; F10.282 Alcohol dependence with alcohol-induced sleep disorder; F10.280 Alcohol dependence with alcohol-induced anxiety disorder; F10.24 Alcohol dependence with alcohol-induced mood disorder; I10 Essential (primary) hypertension; K21.9 Gastro-esophageal reflux disease without esophagitis; J45.20 Mild intermittent asthma, uncomplicated; Z62.810 Personal history of physical and sexual abuse in childhood; Z91.410 Personal history of adult physical and sexual abuse; Z63.0 Problems in relationship with spouse or partner; Z63.8 Other specified problems related to primary support group; Z88.8 Allergy status to other drugs, medicaments and biological substances; Z86.19 Personal history of other infectious and parasitic diseases
CPT/HCPCS: 36415; 80053; 80307; 85027; 86593; 86780; 93005; 93010

== ENCOUNTER 2025-03-30 11:34 | Inpatient (IN) | payer BC ==
[2025-03-30 11:51] VITALS: BMI 33.6
[2025-03-30] MEDS ORDERED: MAGNESIUM HYDROX 2400MG/30ML ORAL SUSPENSION 30 ML CUP PO PRN (12:06)
[2025-03-30] MEDS ORDERED: BENZOCAINE/MENTHOL (CHLORASEPTIC ) LOZENGE MM PRN (12:06)
[2025-03-30] MEDS ORDERED: guaiFENesin 600 MG TABLET.ER (FP) PO PRN (12:06)
[2025-03-30] MEDS ORDERED: IBUPROFEN 400 MG TABLET (FP) PO PRN (12:06)
[2025-03-30] MEDS ORDERED: DICYCLOMINE HCL 10 MG CAPSULE PO PRN (12:06)
[2025-03-30] MEDS ORDERED: NALOXONE (NARCAN) HCL 4 MG/0.1 ML SPRAY NS PRN (12:06)
[2025-03-30] MEDS ORDERED: LOPERAMIDE HCL 2 MG CAPSULE PO PRN (12:06)
[2025-03-30] MEDS ORDERED: POLYETHYLENE GLYCOL (HEALTHYLAX) 3350 17 GM PACKET PO PRN (12:06)
[2025-03-30] MEDS ORDERED: ALBUTEROL SO4 HFA INHALER IH PRN (12:07)
[2025-03-30] MEDS ORDERED: HYDROCORTISONE 0.5% TOPICAL CREAM 30 GM TUBE TP PRN (12:07)
[2025-03-30] MEDS ORDERED: NALTREXONE HCL 50 MG TABLET PO ONE (12:45)
[2025-03-30] MEDS ORDERED: PRENATAL VITAMINS W/ FOLIC ACID TABLET (FP) PO ONE (14:08)
[2025-03-30] MEDS: PRENATAL VITAMINS W/ FOLIC ACID TABLET (FP) PO SCH (14:10)
[2025-03-30] MEDS: amLODIPine BESYLATE 10 MG TABLET (FP) PO ONE (14:51)
[2025-03-30] MEDS: NALTREXONE HCL 50 MG TABLET PO ONE (14:54)
[2025-03-30] MEDS: hydrOXYzine PAMOATE 25 MG CAPSULE (FP) PO PRN (17:15)
[2025-03-30] MEDS: METHOCARBAMOL 500 MG TABLET PO PRN (19:43)
[2025-03-30] MEDS: MELATONIN 5 MG TABLETS PO SCH (22:25)
[2025-03-30] MEDS: THIAMINE 100 MG TABLET PO SCH (22:25)
[2025-03-31] MEDS: IBUPROFEN 600 MG TABLET (FP) PO PRN (08:04)
[2025-03-31] MEDS: NALTREXONE HCL 50 MG TABLET PO SCH (09:41)
[2025-03-31] MEDS: amLODIPine BESYLATE 10 MG TABLET (FP) PO SCH (09:41)
[2025-03-31] MEDS: LORATADINE 10 MG TABLET PO SCH (09:41)
[2025-03-31] MEDS: MAG HYDROX/AL HYDROX/SIMETH 30 ML UNIT-DOSE CUP PO PRN (10:04)
[2025-03-31] MEDS: NICOTINE POLACRILEX 2 MG GUM BUC PRN (10:05)
[2025-03-31 11:49] LABS: MCHC 32.2 g/dl (32.2-35.5); MEAN CELL VOLUME 84.3 fl (79.4-94.8); MEAN PLT VOLUME 10.1 fl (9.4-12.3); RDW 13.8 % (12.3-16.6)
[2025-03-31] MEDS: GABAPENTIN 300 MG CAPSULE PO SCH (13:04)
[2025-03-31 13:36] LABS: CO2 27.0 mmol/L (21-32); GLUCOSE,RANDOM 96.0 mg/dL (74-106)
[2025-03-31 13:40] LABS: CREATININE 0.7 mg/dL (0.55-1.3); SGOT/AST 26.0 U/L (15-37); SGPT/ALT 30.0 U/L (13-61)
[2025-03-31 13:42] LABS: TOT PROT 7.8 g/dl (6.4-8.2)
[2025-03-31 13:43] LABS: ALK PHOS 132.0 U/L (45-117)
[2025-03-31] MEDS: BISMUTH SUBSALICYLATE 524 MG/30 ML PO PRN (20:35)
[2025-03-31] MEDS: QUEtiapine FUMARATE 100 MG TABLET (FP) PO SCH (22:02)
[2025-04-01] MEDS: ACETAMINOPHEN 325 MG TABLET (FP) PO PRN (08:30)
[2025-04-01] MEDS: QUEtiapine FUMARATE 100 MG TABLET (FP) PO SCH (10:12)
[2025-04-01] MEDS: BENZONATATE 200 MG CAPSULE PO PRN (20:22)
[2025-04-02] MEDS: ONDANSETRON *ODT* 4 MG TABLET SL PRN (18:21)
[2025-04-03 09:21] VITALS: BP 130/83; PULSE 90; RESP 18; TEMP 97.6
== END 2025-04-03 10:23 | disposition home or self-care (01) | DRG 775 ==
LOC: YASAS 11:34 → Y3N 13:37
PROVIDERS: ADMIT Allergy & Immunology; ATTEND Allergy & Immunology
PROC: HZ2ZZZZ Detoxification Services for Substance Abuse Treatment (ICD-10-PCS; principal; 2025-03-30)
DX: F10.230 Alcohol dependence with withdrawal, uncomplicated (principal); I10 Essential (primary) hypertension; E78.5 Hyperlipidemia, unspecified; G89.29 Other chronic pain; M54.50 Low back pain, unspecified; J45.20 Mild intermittent asthma, uncomplicated; E66.9 Obesity, unspecified; Z68.33 Body mass index [BMI] 33.0-33.9, adult
CPT/HCPCS: 36415; 80053; 80305; 80307; 81025; 85027; 86593; 86780; 93005; 93010; Q0162